=== PATIENT | female | born 1995 | race Caucasian/White ===

== ENCOUNTER 2023-06-23 23:23 | Emergency (ER) | payer OTHER, SELFPAY ==
[2023-06-23 23:33] VITALS: BP 114/83; PULSE 74; RESP 16; TEMP 36.8; O2SAT 10; BMI 25.0
--- NOTE | 2023-06-23 23:59 | ED.SKABFB1 ---
HPI - Skin/Abscess/Foreign Bdy General Chief complaint: Skin/Abscess/Foreign Body Stated complaint: RASH Time Seen by Provider: 06/23/23 23:51 Source: patient Mode of arrival: walk-in Limitations: no limitations History of Present Illness HPI narrative: patient states she was exposed to her boyfriend's mother who has shingles. she has a rash on her left inner thigh and was concerned it may be shingles. No pain. no drainage. MD complaint: Reports rash Related Data Home Medications Medication Instructions Recorded Confirmed No Known Home Medications 06/23/23 06/23/23 Allergies Allergy/AdvReac Type Severity Reaction Status Date / Time No Known Drug Allergies Allergy Verified 06/23/23 23:37 Review of Systems ROS Status of ROS 10 or more systems reviewed and unremarkable except as noted in history and below Exam Constitutional Vital Signs, click to edit/add: Last Vital Signs Temp 98.3 F 06/23/23 23:33 Pulse 74 06/23/23 23:33 Resp 16 06/23/23 23:33 BP 114/83 06/23/23 23:33 Pulse Ox 10 L 06/23/23 23:33 O2 Del Method Room Air 06/23/23 23:33 Common normals: no apparent distress, average body habitus, oriented x3, no limitations, healthy appearing and alert Eye Common normals: EOMs intact bilaterally and conjunctivae normal Respiratory Common normals: normal respiratory effort, no retractions, no use of accessory muscles and clear to auscultation bilaterally Cardio Common normals: regular rate, regular rhythm, S1 normal heart sound and S2 normal heart sound GI Other: mild tenderness LLQ. no guarding Extremity Other: 2 small 1mm erythematous lesions on her left inner thigh. nontender. look like hair cell irritations Neuro Common normals: oriented x3, CN's II-XII intact bilaterally, moves all extremities and no focal motor deficits Psych Appearance: grossly normal Course Vital Signs Vital signs: Vital Signs Temperature 98.3 F 06/23/23 23:33 Pulse Rate 74 06/23/23 23:33 Respiratory Rate 16 06/23/23 23:33 Blood Pressure 114/83 06/23/23 23:33 Pulse Oximetry 10 L 06/23/23 23:33 Oxygen Delivery Method Room Air 06/23/23 23:33 Temperature 98.3 F 06/23/23 23:33 Pulse Rate 74 06/23/23 23:33 Respiratory Rate 16 06/23/23 23:33 Blood Pressure 114/83 06/23/23 23:33 Pulse Oximetry 10 L 06/23/23 23:33 Oxygen Delivery Method Room Air 06/23/23 23:33 MDM - Skin/Abscess/Foreign Bdy MDM Narrative Medical decision making narrative: presents with minor rash left inner thigh. very benign appearing rash. Maybe haircell irritation. No intervention at this time. Definitely does not look like shingles. Patient discharged home Discharge Plan Discharge Chief Complaint: Skin/Abscess/Foreign Body Clinical Impression: Rash Patient Disposition: Home, Self-Care Prescriptions / Home Meds: No Action No Known Home Medications Instructions: Acute Rash (ED) Stand Alone Forms: Portal Instructions Referrals: Physician,Non-Staff, MD [Primary Care Provider] - 1 week
== END 2023-06-24 00:09 | disposition home or self-care (01) ==
PROVIDERS: Emergency Provider Internal Medicine
DX: R21 Rash and other nonspecific skin eruption (principal)
CPT/HCPCS: 99281

== ENCOUNTER 2025-09-03 11:15 | Emergency (ER) | payer OTHER, SELFPAY ==
[2025-09-03 11:20] VITALS: BP 120/73; PULSE 71; TEMP 37; O2SAT 98; BMI 27.5
--- NOTE | 2025-09-03 11:29 | XR_ITS ---
[address] [address] Patient Name: DORIAN GUZMÁN MRN: [id number] date: 1995 Sex: F Assigned Patient Location: ER Current Patient Location: ED.MAIN Accession/Order Number: [id number] Exam Date: 09/03/2025 11:48 Report Date: 09/03/2025 12:45 At the request of: PHANI DYSON MD Procedure: XR chest 1V XR chest 1V 09/03/2025 11:50 AM SIGNS AND SYMPTOMS: ^Cough, sore throat PROTOCOL: Frontal radiograph of the chest COMPARISON: None FINDINGS: The trachea is midline. The heart and mediastinal structures are within normal limits. The lung parenchyma is clear. The bony thorax is intact. XR/XR chest 1V IMPRESSION: No acute cardiopulmonary pathology. Impression dictated by: Varun Ledbetter M.D. 09/03/2025 12:45 PM Dictation Location: [place] [address] Electronically authenticated by: [id number] Y Date: 09/03/2025 12:45
--- NOTE | 2025-09-03 11:29 | ECG_ITS ---
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 Measurements Intervals [place] Rate: 70 P: 69 DC: 146 QRS: 88 QRSD: 72 T: 60 QT: 364 QTc: 384 Interpretive Statements 1100 Sinus rhythm 1102 Sinus arrhythmia 9110 normal ECG No previous ECG available for comparison Electronically Signed On 09-03-2025 19:51:12 EST by ROMÁN ORNELAS M.D.
--- NOTE | 2025-09-03 11:29 | ED.GENADUL1 ---
HPI HPI - General Adult General Chief complaint: Upper Respiratory Infection Stated complaint: chest tightness, sore throat Time Seen by Provider: 09/03/25 11:20 Source: patient Mode of arrival: walk-in Limitations: no limitations History of Present Illness HPI narrative: 30-year-old female presented to the emergency department for 3-day history of cough. It is nonproductive. No known fever. She has tightness in her chest as well. She was seen in urgent care yesterday and was prescribed Zithromax and prednisone. No vomiting or diarrhea. Related Data Home Medications ?Medication ?Instructions ?Recorded ?Confirmed azithromycin 500 mg tablet mg 09/03/25 bupropion HCl 150 mg 24 hr tablet, mg PO 09/03/25 extended release guanfacine 1 mg tablet,extended mg PO 09/03/25 release 24 hr guanfacine 2 mg tablet,extended mg PO 09/03/25 release 24 hr omeprazole 20 mg capsule,delayed mg 09/03/25 release prednisone 20 mg tablet mg 09/03/25 Allergies Allergy/AdvReac Type Severity Reaction Status Date / Time No Known Drug Allergies Allergy Verified 09/03/25 11:20 Opioid HPI Opioid Management Most Recent Opioid Data: Last Pain Scale 5 Today, 11:20 Review of Systems ROS Narrative A ten point review of systems is negative except as noted above. PFSH PFSH Social History Little interest or pleasure in doing things: not at all Feeling down, depressed, or hopeless: not at all Exam Narrative Exam Narrative: Nurses note and vital signs reviewed General:The patient appears well and in no apparent distress.Patient is resting comfortably on cart. Skin:Warm, dry, no pallor noted.There is no rash noted. Head:Normocephalic, atraumatic Eye: Normal conjunctiva, no drainage Ears, Nose, Mouth, and Throat: oral mucosa is moist. Nares patent. No pharyngeal erythema or exudate Cardiovascular:Regular Rate and Rhythm Respiratory:Patient is in no distress, no accessory muscle use, lungs are clear to auscultation, no wheezing, rales or rhonchi Back:non-tender GI: Soft and nontender Musculoskeletal: The patient has no evidence of calf tenderness, no pitting edema, symmetrical pulses noted bilaterally Neurological:A&O, normal speech Psychiatric:Cooperative Constitutional Vital Signs, click to edit/add: Last Vital Signs Temp 98.6 F 09/03/25 11:20 Pulse 71 09/03/25 11:20 Resp 14 09/03/25 11:20 BP 120/73 09/03/25 11:20 Pulse Ox 98 09/03/25 11:20 Course Vital Signs Vital signs: Vital Signs Temperature 98.6 F 09/03/25 11:20 Pulse Rate 71 09/03/25 11:20 Respiratory Rate 14 09/03/25 11:20 Blood Pressure 120/73 09/03/25 11:20 Pulse Oximetry 98 09/03/25 11:20 Temperature 98.6 F 09/03/25 11:20 Pulse Rate 71 09/03/25 11:20 Respiratory Rate 14 09/03/25 11:20 Blood Pressure 120/73 09/03/25 11:20 Pulse Oximetry 98 09/03/25 11:20 Medical Decision Making MDM Narrative Medical decision making narrative: Chest x-ray, COVID, influenza, and strep are all negative she will continue the treatment given to her at the urgent care which is Zithromax and prednisone. Treatment diagnosis and follow-up were discussed with the patient. Differential Diagnosis Differential Diagnosis: Pneumonia, COVID, influenza, URI, strep throat Lab Data Lab results reviewed: Yes I reviewed the patient's lab results Labs: Lab Results 09/03/25 Range/Units 11:32 Influenza Type A Ag Negative Influenza Type B Ag Negative SARS-CoV-2 Ag (CV2AG) Negative (NEGATIVE) Streptococcus Screen Negative Imaging Data Chest x-ray: Radiologist's impression: ITS Impressions Chest X-Ray 09/03/25 11:29 IMPRESSION: No acute cardiopulmonary pathology. Impression dictated by: Varun Ledbetter M.D. 09/03/2025 12:45 PM Dictation Location: [place] [address] Electronically authenticated by: [id number] Y Date: 09/03/2025 12:45 ECG Data Attestation: I personally reviewed and interpreted this ECG as follows: (EKG my interpretation shows sinus rhythm with a rate of 70 and no acute change.) Discharge Plan Discharge Chief Complaint: Upper Respiratory Infection Clinical Impression: Upper respiratory infection Patient Disposition: Home, Self-Care Time of Disposition Decision: 12:54 Condition: Good Mode of Transportation: Private Vehicle Prescriptions / Home Meds: No Action prednisone 20 mg tablet omeprazole 20 mg capsule,delayed release(DR/EC) azithromycin 500 mg tablet bupropion HCl 150 mg tablet extended release 24 hr PO guanfacine 2 mg tablet extended release 24 hr PO guanfacine 1 mg tablet extended release 24 hr PO Print Language: St Helenian Instructions: Upper Respiratory Infection (ED) Referrals: Shirley Steni NP [Primary Care Provider] - 1 week
[2025-09-03 11:59] LABS: SARS-CoV-2 Ag NEGATIVE (NEGATIVE)
--- OUTSIDE RECORDS SUMMARY | 2025-09-03 12:02 | XMS_ITS | Clinical Summary ---
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 Before first use, prime pump. After use, clean tip and replace cap. 48 g ctive cetirizine-pseudoephedrine (ZyrTEC-D) 5-120 MG 12 hr tablet Indications:Chronic maxillary sinusitisTake 1 tablet by mouth in the morning and 1 tablet before bedtime. 180 tablet ctive Active Problems No known active problems Family History Medical HistoryRelationNameCommentsCOPDFatherHeart failureFatherRelationName StatusCommentsFatherAliveMotherAlive Social History Tobacco UseTypesPacks/DayYears UsedDateSmoking Tobacco: NeverSmokeless Tobacco: Never Tobacco Cessation:Counseling Given: Not Answered Alcohol UseStandard Drinks/WeekCommentsNot Currently0 (1 standard drink = 0.6 oz pure alcohol)CommentsUnknownSex and Gender InformationValueDate Recorded Sex Assigned at CyrdgPqjsog36/30/2024 11:26 AM ESTLegal KqlUxrbqy25/30/2024 11:26 AM ESTGender HrczbpbzZeggae40/30/2024 11:26 AM ESTSexual OrientationNot on file Last Filed Vital Signs Vital SignReadingTime TakenCommentsBlood Eapxzjbu858/67011/20/2024 10:34 AM EST Lfqwr933711/20/2024 10:34 AM ESTTemperature--Respiratory Rate--Oxygen Saturation-- Inhaled Oxygen Concentration--Igbtuu01 kg (172 lb)11/20/2024 10:34 AM ESTHeight 165.1 cm (5' 5 )11/20/2024 10:34 AM ESTBody Mass Index28.62011/20/2024 10:34 AM EST Plan of Treatment Not on file Insurance * Guarantor: Amanda Orozco TypeRelation to PatientDate of BirthPhoneBilling AddressPersonal/UykstbKubs1995 [facility] [place] [address] Care Teams Team MemberRelationshipSpecialtyStart DateEnd Shirley Stein MD [address], [place] [address] PCP - GeneralFamily Medicine10/04/24 Shirley Stein MD [address], [place] [address] Referring PhysicianFamily Medicine10/04/24
--- OUTSIDE RECORDS SUMMARY | 2025-09-03 12:02 | XMS_ITS | Clinical Summary ---
Author Organization [facility] [facility] Address [id number] [address] 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 16 mL 5Active ondansetron ODT (ZOFRAN ODT) 4 mg disintegrating tablet Indications:Migraine without aura and without status migrainosus, not intractableDissolve 1 tablet (4 mg total) on tongue every 8 (eight) hours as needed for nausea or vomiting. 30 tablet 5Active rizatriptan (MAXALT) 10 mg tablet Indications:Migraine without aura and without status migrainosus, not intractableTake 1 tablet just after onset of migraine. May repeat the dose after 2 hours if migraine persists.Max of 2 doses per 24 hours. 12 tablet 5Active guanFACINE ER (INTUNIV) 2 mg tablet extended release 24 hr Indications:TicTake 1 tablet by mouth every evening 30 tablet 5Active omeprazole (PriLOSEC) 20 mg capsule Indications:Gastroesophageal reflux disease without esophagitisTake 1 capsule (20 mg total) by mouth in the morning. 30 capsule 5Active buPROPion XL (WELLBUTRIN XL) 150 mg 24 hr tablet Indications:Current moderate episode of major depressive disorder, unspecified whether recurrent (CMS-HCC)Take 1 tablet (150 mg total) by mouth every morning. 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 Current moderate episode of major depressive disorder, unspecified whether recurrent (CMS-HCC) (Primary Dx); Tic; Gastroesophageal reflux disease without pogsiepazhe47/18/4384Dsxruh79/22/2025 Results Follow-Up [facility] [place] [address] [place] [address] Feng Torres PA-C EEG07/21/2025 1:00 PM EDT - 07/21/2025 11:59 PM EDTHospital Encounter [facility] [address] [place] [address] Tic Discharge Disposition: Home07/21/20253975Hslbio71/08/2025 9:30 AM EDTOffice Visit [facility] [place] [address] [place] [address] Feng Torres PA-C Migraine without aura and without status migrainosus, not intractable (Primary Dx); Tic07/09/2025Travelfrom Last 3 Months Family History Medical HistoryRelationNameCommentsNo Known ProblemsBrother 1No Known Problems Brother 2No Known ProblemsBrother 3Heart diseaseFatherLiver diseaseFatherThyroid diseaseMaternal Aunt 1Thyroid diseaseMaternal Aunt 2Heart diseaseMaternal GrandfatherDonArthritisMaternal GrandmotherKimAsthmaMaternal GrandmotherKim Breast cancerMaternal GrandmotherKimHypertensionMaternal GrandmotherKimThyroid diseaseMaternal GrandmotherKimBreast cancerMaternal great-grandmothermetastatic AsthmaMotherMigrainesPaternal AuntHeart diseasePaternal GrandfatherLung disease Paternal GrandfatherLiver diseaseSister 1Thyroid diseaseSister 1Cystic kidney diseaseSister 2she had exra urethraRelationNameStatusCommentsBrother 1Alive Brother 2AliveBrother 3AliveFatherAliveMaternal Aunt 1AliveMaternal Aunt 2Alive Maternal GrandfatherDonAliveMaternal GrandmotherKimAliveMaternal great-grandmotherDeceasedMotherAlivePaternal AuntAlivePaternal GrandfatherAlive Paternal GrandmotherAliveSister 1AliveSister 2Alive Social History Tobacco UseTypesPacks/DayYears UsedDateSmoking Tobacco: NeverSmokeless Tobacco: Never Tobacco Cessation:Counseling Given: Not Answered Alcohol UseStandard Drinks/WeekCommentsNot Currently0 (1 standard drink = 0.6 oz pure alcohol)occasionallyPHQ-2AnswerDate RecordedTotal Ogdnl2935 ChildcareAnswerDate VkvfrkbkNoirdwxiaKvshfuf38/13/2020EmploymentAnswerDate HuzmtxuiMslncvcitbVerdexz87/13/2020Hunger ScreeningAnswerDate RecordedWithin the past 12 months we worried whether our food would run out before we got money to buy more.Never True08/19/2025Within the past 12 months the food we bought just didn't last and we didn't have money to get more.Never True08/19/2025Purpose - LifeAnswerDate RecordedPurpose and direction in rqamJfhaknt53/11/2021 CommentsNoSex and Gender InformationValueDate RecordedSex Assigned at Eghoah7106/06/2023 11:01 PM EDTLegal KnnEaqydd61/13/2020 9:29 AM EDTGender PlacbohkFlsvtd40/05/2023 11:01 PM EDTSexual LnkbnobycjjFoowuyuy22/05/2023 11:01 PM EDT Last Filed Vital Signs Vital SignReadingTime TakenCommentsBlood Fxaxtekl050/7411/ 9:48 AM EST Uvlur019208/19/2025 9:48 AM FIDSaypmsvgxfs59.6 ??C (97.9 ??F)08/19/2025 9:48 AM ESTRespiratory Zshd340404/21/2025 7:16 PM EDTOxygen Vqpwmscqqi16%08/19/2025 9:48 AM ESTInhaled Oxygen Concentration--Oklpsv17.8 kg (164 lb 12.8 oz)08/19/2025 9:48 AM JALKouvao897.1 cm (5' 5 )07/09/2025 9:31 AM EDTBody Mass Index27.42 07/09/2025 9:31 AM EDT Plan of Treatment DateTypeDepartmentCare Team (Latest Contact Info)Zhavcpcfuvc28/02/2026 11:00 AM ESTOffice Visit [facility] [address] [place] [address] Shirley Stein, [employer]MER [address] [place] [address] 01/07/2026 9:30 AM EDTOffice Visit [facility] [place] [address] [place] [address] Feng Torres, MO[place]STA [address] [facility] [address] [place] [address] Health MaintenanceDue DateLast DoneCommentsDTaP,Tdap and Td Vaccines (6 - Td or Tdap), 05/25/2000, 1995, Additional history exists Influenza Ekvpypv07/01/2020, 07/11/2019, 08/05/2018, Additional history existsAdult BMI Follow Up [facility] BMI Screening Depression Pzgrmtolw62Tobacco Screening /2025Pap Smear710/06/2024, 07/10/2024 Medical Devices Not on file Procedures Procedure NamePriorityDate/TimeAssociated BlnpfdldkLwrhythfGYHCbaridg31/20/2025 2:30 PM EDT Tic HIGH RISK HPV W/QOPLDtzqpol73/09/2024 3:52 AM EDT Screening for cervical cancer from Last 3 Months or Most Recently Relevant to Health Maintenance Results * EEG (07/21/2025 2:30 PM EDT)Specimen (Source)Anatomical Location / Laterality Collection Method / VolumeCollection TimeReceived Time Narrative MANUALLY TRANSCRIBED RESULTS - 07/21/2025 9:38 PM EDT Images from the original result were not included. History This is a routine EEG performed for a patient with tics, concern for seizures Procedure This is a standard digital EEG performed in the 10-20 International System and was reviewed with multiple reformattable montages Technical Description There is a well defined sinusoidal 9-10 Hz posterior dominant rhythm noted that attenuates with eye opening. The background activity is composed of 20-40 uv rhythmical theta and alpha range frequencies that is intermixed with 5-15 uv beta range activity noted in the anterior/frontal leads. There is intermittent background slowing intermixed with attenuation of the posterior dominant rhythm with appearance of vertex sharp waves indicative of stage 1 sleep. Hyperventilation is done and results in mild background slowing Photic stimulation fails to elicit a driving response. No definite interictal epileptiform activity in the form of spike and wave is noted. Clinical Interpretation This EEG is within normal limits in the awake and asleep states. Morgan Antunez MD Hybrid Derivatives Trader Neurology/Neurophysiology [facility] Authorizing ProviderResult TypeResult StatusAnthcristobal GRAHAMCNEUROLOGY ORDERABLESFinal ResultPerforming OrganizationAddressCity/State/ZIP CodePhone Number MANUALLY TRANSCRIBED RESULTS * High risk HPV w/carmelo (07/10/2024 3:52 AM EDT)ComponentValueRef RangeTest MethodAnalysis TimePerformed AtPathologist SignatureHpv specimen typeThinPrep 07/11/2024 3:53 AM EDTFCHILDREN'S HOSPITAL OF SAN DIEGOHpv 16NegativeNegative^Negative 07/11/2024 3:14 PM [facility] LABHpv 18Negative Negative^Tgilncfh80/10/2024 3:14 PM [facility] LABOther high risk hpvNegativeNegative^Vcihmjde53/10/2024 3:14 PM [facility] LABComment: HPV types 31,33,35,39,45,52,56,58,59,66 and 68 DNA were undetectable. Specimen (Source)Anatomical Location / LateralityCollection Method / Volume Collection TimeReceived FkpfMLBTK44/09/2024 3:52 AM EDT1 4:03 AM EDT Narrative Authorizing ProviderResult TypeResult StatusSteperi Weiner APRN-CNPLAB BLOOD ORDERABLESFinal ResultPerforming OrganizationAddressCity/State/ZIP Code Phone Number [facility] [address] [facility], [place] [address] [facility] [address] [place] [address], [address] [place] [address] from Last 3 Months or Most Recently Relevant to Health Maintenance Insurance Care Teams Team MemberRelationshipSpecialtyStart DateEnd Date Shirley Stein APRN-HAND SPRING FORMER [address] [place] [address] PCP - GeneralNurse Igekhdnbknpu99/2/24
== END 2025-09-03 13:05 | disposition home or self-care (01) ==
PROVIDERS: Emergency Provider Emergency Medicine; PCP Nurse Practitioner Family
DX: J06.9 Acute upper respiratory infection, unspecified (principal)
CPT/HCPCS: 71045; 87070; 87804; 87811; 87880; 93005; 99285